=== PATIENT | female | born 1935 | race African-American/Black ===

== ENCOUNTER 2018-07-06 15:39 | Inpatient (IN) ==
[2018-07-06] MEDS ORDERED: ALBUTEROL/IPRATROPIUM 3 ML NEB RESP TX STA (16:15)
[2018-07-06] MEDS ORDERED: SODIUM CHLORIDE 0.9% 1,000 ML IV STA (16:15)
[2018-07-06 16:31] LABS: Basophils % 0.3 % (0.0-0.8); Eosinophils # 0.1 10*3/uL (0.0-0.87); Hematocrit 29.2 VOL% (35.7-47.0); Hemoglobin 9.1 GM/DL (12.0-16.0); Immature Granulocytes % 0.8 %; Immature Granulocytes Absolute 0.05 #; Lymphocytes # 0.8 10*3/uL (1.4-4.0); Lymphocytes % 13.1 % (21.3-54.2); Mean Corpuscular HGB Conc 31.2 GM/DL (32-36); Mean Corpuscular Volume 86.9 FL (87-102); Mean Platelet Volume 10.2 FL (9.6-12.0); Monocytes % 11.3 % (1.7-12.7); Neutrophils % 73.5 % (38.7-73.9); Platelet Count 232 T/CUMM (130-400); Red Blood Count 3.36 MC/CUMM (3.8-5.5); Red Cell Distribution Width 12.7 % (9.3-17.3); White Blood Count 6.2 T/CUMM (4-12)
[2018-07-06 16:53] LABS: Apearance,Urine CLEAR (Clear); Bilirubin,Urine Negative (Negative); Blood, Urine Negative (Negative); Glucose,Urine (UA) Negative (Negative); Hyaline Casts,Urine 1 /LPF (0-3); Ketones,Urine Negative (Negative); Nitrite,Urine Negative (Negative); Protein,Urine 30 MG/DL; Squamous Epithelial Cell,Urine Occasional /HPF (0-10); Urine Color Straw (Yellow); Urine Specific Gravity 1.006 (1.001-1.035); Urine Urobilinogen < 2.0 EU/DL (0.2-1.0)
[2018-07-06 17:06] LABS: Albumin 3.7 G/DL (3.4-5.0); Bilirubin,Total 0.4 MG/DL (0.2-1.0); Calcium 8.8 MG/DL (8.5-10.1); Osmolality,Calculated 277.7 MOS/KG (273-304)
[2018-07-06 17:22] LABS: Free T4 (Free Thyroxine) 1.29 NG/DL (0.76-1.46); Thyroid Stimulating Hormone 3.26 uIU/ml (0.358-3.74)
[2018-07-06] MEDS ORDERED: PROMETHAZINE 25 MG/1 ML VIAL IM PRN (18:55)
[2018-07-06] MEDS ORDERED: diphenhydrAMINE CAP 25 MG CAPSULE PO PRN (18:55)
[2018-07-06] MEDS ORDERED: ONDANSETRON 4 MG/2 ML VIAL IV PRN (18:55)
[2018-07-06] MEDS ORDERED: LUBIPROSTONE 8 MCG CAPSULE PO PRN (19:13)
[2018-07-06] MEDS: AZITHROMYCIN INJ 500 MG in SODIUM CHLORIDE 0.9% 250 ML IV SCH (20:07)
[2018-07-06] MEDS ORDERED: BENZONATATE 100 MG CAPSULE PO STA (20:09)
[2018-07-06] MEDS: methylPREDNISolone SOD SUC 40 MG/1 ML VIAL IV SCH (20:18)
[2018-07-06] MEDS ORDERED: ALBUTEROL 2.5 MG/3 ML NEB RESP TX PRN (21:00)
[2018-07-06] MEDS: SODIUM CHLORIDE 0.9% 1,000 ML IV SCH (21:12)
[2018-07-06] MEDS: FERROUS SULFATE 325 MG TABLET PO SCH (22:13)
[2018-07-06] MEDS: ENOXAPARIN 30 MG/0.3 ML SYRINGE SUBCUT SCH (22:13)
[2018-07-06] MEDS: LABETALOL 200 MG TABLET PO SCH (22:14)
[2018-07-06] MEDS: MECLIZINE 25 MG TABLET PO SCH (22:14)
[2018-07-06] MEDS: SIMVASTATIN 20 MG TABLET PO SCH (22:15)
[2018-07-06] MEDS: MAGNESIUM OXIDE 400 MG TABLET PO SCH (22:15)
[2018-07-07] MEDS: ALBUTEROL/IPRATROPIUM 3 ML NEB RESP TX SCH ×5 (01:11→23:55)
[2018-07-07] MEDS: methylPREDNISolone SOD SUC 40 MG/1 ML VIAL IV SCH ×3 (03:12→19:49)
[2018-07-07 05:40] LABS: Albumin 3.6 G/DL (3.4-5.0); Bilirubin,Total 0.4 MG/DL (0.2-1.0); Calcium 8.7 MG/DL (8.5-10.1); Osmolality,Calculated 285.2 MOS/KG (273-304); Total Protein 6.7 G/DL (6.4-8.3)
[2018-07-07] MEDS: LEVOTHYROXINE 88 MCG TABLET PO SCH (06:11)
[2018-07-07] MEDS: FEBUXOSTAT 80 MG TABLET PO SCH (08:04)
[2018-07-07] MEDS: LOSARTAN 50 MG TABLET PO SCH (08:07)
[2018-07-07] MEDS: LABETALOL 200 MG TABLET PO SCH ×2 (08:08→20:51)
[2018-07-07] MEDS: ASPIRIN EC 81 MG TABLET PO SCH (08:09)
[2018-07-07] MEDS: FERROUS SULFATE 325 MG TABLET PO SCH ×2 (08:09→20:51)
[2018-07-07] MEDS: PANTOPRAZOLE 40 MG TABLET PO SCH (08:11)
[2018-07-07] MEDS: SODIUM CHLORIDE 0.9% 1,000 ML IV SCH ×2 (08:12→21:43)
[2018-07-07] MEDS ORDERED: cloNIDine 0.2 MG/24 HR PATCH TRANSDERM SCH (09:00)
[2018-07-07] MEDS: MECLIZINE 25 MG TABLET PO SCH ×2 (11:36→20:50)
[2018-07-07] MEDS: ACETAMINOPHEN 325 MG TABLET PO PRN (16:08)
[2018-07-07] MEDS: hydrALAZINE 20 MG/1 ML VIAL IV PRN (16:18)
[2018-07-07] MEDS: cefTRIAXone 1,000 MG in SYRINGE 1 EACH IV SCH (18:34)
[2018-07-07] MEDS: DORNASE ALFA 2.5 MG/2.5 ML VIAL RESP TX SCH (19:45)
[2018-07-07] MEDS: ENOXAPARIN 30 MG/0.3 ML SYRINGE SUBCUT SCH (19:48)
[2018-07-07] MEDS: AZITHROMYCIN INJ 500 MG in SODIUM CHLORIDE 0.9% 250 ML IV SCH (19:49)
[2018-07-07] MEDS: MAGNESIUM OXIDE 400 MG TABLET PO SCH (20:51)
[2018-07-07] MEDS: SIMVASTATIN 20 MG TABLET PO SCH (20:51)
[2018-07-08] MEDS: methylPREDNISolone SOD SUC 40 MG/1 ML VIAL IV SCH ×2 (02:30→10:54)
[2018-07-08] MEDS: BENZONATATE 100 MG CAPSULE PO PRN ×2 (02:45→17:07)
[2018-07-08] MEDS: ALBUTEROL/IPRATROPIUM 3 ML NEB RESP TX SCH ×6 (03:27→23:33)
[2018-07-08] MEDS: hydrALAZINE 20 MG/1 ML VIAL IV PRN ×3 (05:04→17:08)
[2018-07-08] MEDS: LEVOTHYROXINE 88 MCG TABLET PO SCH (05:47)
[2018-07-08] MEDS: DORNASE ALFA 2.5 MG/2.5 ML VIAL RESP TX SCH ×2 (07:29→19:30)
[2018-07-08] MEDS: ASPIRIN EC 81 MG TABLET PO SCH (08:11)
[2018-07-08] MEDS: FERROUS SULFATE 325 MG TABLET PO SCH ×2 (08:11→21:10)
[2018-07-08] MEDS: LOSARTAN 50 MG TABLET PO SCH (08:11)
[2018-07-08] MEDS: PANTOPRAZOLE 40 MG TABLET PO SCH (08:12)
[2018-07-08] MEDS: LABETALOL 200 MG TABLET PO SCH ×2 (08:14→21:09)
[2018-07-08] MEDS: ACETAMINOPHEN 325 MG TABLET PO PRN (08:17)
[2018-07-08] MEDS: MECLIZINE 25 MG TABLET PO SCH ×2 (09:42→21:09)
[2018-07-08] MEDS: guaiFENesin/DM ER 600-30 MG TABLET PO PRN (09:46)
[2018-07-08] MEDS: SODIUM CHLORIDE 0.9% 1,000 ML IV SCH ×2 (09:47→20:03)
[2018-07-08] MEDS: FEBUXOSTAT 80 MG TABLET PO SCH (10:55)
[2018-07-08] MEDS ORDERED: cloNIDine 0.1 MG TABLET PO ONE (11:46)
[2018-07-08] MEDS ORDERED: cloNIDine 0.1 MG TABLET PO PRN (11:49)
[2018-07-08] MEDS ORDERED: cloNIDine 0.3 MG/24 HR PATCH TRANSDERM SCH (12:00)
[2018-07-08] MEDS ORDERED: amLODIPine 5 MG TABLET PO SCH ×2 (12:51→15:00)
[2018-07-08] MEDS: cefTRIAXone 1,000 MG in SYRINGE 1 EACH IV SCH (17:21)
[2018-07-08] MEDS: ENOXAPARIN 30 MG/0.3 ML SYRINGE SUBCUT SCH (21:10)
[2018-07-08] MEDS: SIMVASTATIN 20 MG TABLET PO SCH (21:10)
[2018-07-08] MEDS: MAGNESIUM OXIDE 400 MG TABLET PO SCH (21:10)
[2018-07-08] MEDS: AZITHROMYCIN INJ 500 MG in SODIUM CHLORIDE 0.9% 250 ML IV SCH (21:11)
[2018-07-09] MEDS: ALBUTEROL/IPRATROPIUM 3 ML NEB RESP TX SCH ×4 (02:54→14:14)
[2018-07-09] MEDS: hydrALAZINE 20 MG/1 ML VIAL IV PRN (05:40)
[2018-07-09] MEDS: LEVOTHYROXINE 88 MCG TABLET PO SCH (05:42)
[2018-07-09] MEDS: DORNASE ALFA 2.5 MG/2.5 ML VIAL RESP TX SCH (06:36)
[2018-07-09] MEDS ORDERED: predniSONE 20 MG TABLET PO SCH (09:00)
[2018-07-09] MEDS: MECLIZINE 25 MG TABLET PO SCH (09:24)
[2018-07-09] MEDS: LABETALOL 200 MG TABLET PO SCH (09:24)
[2018-07-09] MEDS: ASPIRIN EC 81 MG TABLET PO SCH (09:26)
[2018-07-09] MEDS: FERROUS SULFATE 325 MG TABLET PO SCH (09:26)
[2018-07-09] MEDS: PANTOPRAZOLE 40 MG TABLET PO SCH (09:26)
[2018-07-09] MEDS: LOSARTAN 50 MG TABLET PO SCH (09:27)
[2018-07-09] MEDS: FEBUXOSTAT 80 MG TABLET PO SCH (09:27)
[2018-07-09] MEDS: guaiFENesin/DM ER 600-30 MG TABLET PO PRN (09:34)
[2018-07-09 17:57] VITALS: BP 175/74
[2018-07-10] MEDS ORDERED: ERGOCALCIFEROL 50,000 UNIT CAPSULE PO SCH (09:00)
== END 2018-07-09 17:47 | disposition home or self-care (01) | DRG 202 ==
LOC: N.ED 15:39 → SUATTDRO 18:55 → N.EDINP 18:55 → N.2E 21:39
PROVIDERS: ADMIT Internal Medicine; ATTEND Internal Medicine